=== PATIENT | male | born 1960 | race African-American/Black ===

== ENCOUNTER 2021-08-30 08:18 | Outpatient (CLI) | payer OTHER | END 2021-08-30 08:19 | disposition home or self-care (01) | LOC: CT 08:18 | PROVIDERS: ATTEND Urology | DX: D35.02 Benign neoplasm of left adrenal gland (principal); C80.1 Malignant (primary) neoplasm, unspecified; R91.1 Solitary pulmonary nodule; Z98.890 Other specified postprocedural states | CPT/HCPCS: 71260; 74178; 78306; 82565; A9503 ==